=== PATIENT | female | born 1950 | race Caucasian/White ===

== ENCOUNTER 2021-01-19 08:15 | Outpatient (REF) | payer MEDICARE, MEDICAID, SELFPAY ==
--- NOTE | ~2021-01-19 | XR_ITS ---
EXAMINATION: XR KNEES, STANDING AP XR KNEE, LEFT CLINICAL INFORMATION: Knee pain. COMPARISON: Standing AP knees and left knee radiographs 03/14/2014. TECHNIQUE: Standing AP view of both knees is performed along with lateral and axial patella views of the left knee. FINDINGS: Left Knee: Prior left knee arthroplasty. Hardware intact. No fracture, dislocation, osteolysis, or destructive process. No periostitis. There may be trace suprapatellar fluid. There is ossification in the mid quadriceps tendon again seen. The patella again shows mild lateral tilting without lateralization. Small stable lateral patellar spur. Right Knee: There are osteoarthritic changes, greater medial compartment with prominent joint narrowing and subchondral sclerosis and osteophyte. There is secondary genu varus. No visible erosive change or chondrocalcinosis. No destructive process. XR/XR knee standing BI IMPRESSION: LEFT KNEE: -Knee arthroplasty. Hardware intact. No osteolysis. -Chronic ossification quadriceps tendon and lateral patellar tilting. Trace effusion. 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
--- NOTE | ~2021-01-19 | XR_ITS ---
EXAMINATION: XR KNEES, STANDING AP XR KNEE, LEFT CLINICAL INFORMATION: Knee pain. COMPARISON: Standing AP knees and left knee radiographs 03/14/2014. TECHNIQUE: Standing AP view of both knees is performed along with lateral and axial patella views of the left knee. FINDINGS: Left Knee: Prior left knee arthroplasty. Hardware intact. No fracture, dislocation, osteolysis, or destructive process. No periostitis. There may be trace suprapatellar fluid. There is ossification in the mid quadriceps tendon again seen. The patella again shows mild lateral tilting without lateralization. Small stable lateral patellar spur. Right Knee: There are osteoarthritic changes, greater medial compartment with prominent joint narrowing and subchondral sclerosis and osteophyte. There is secondary genu varus. No visible erosive change or chondrocalcinosis. No destructive process. XR/XR knee LT 2V IMPRESSION: LEFT KNEE: -Knee arthroplasty. Hardware intact. No osteolysis. -Chronic ossification quadriceps tendon and lateral patellar tilting. Trace effusion. 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
== END 2021-01-19 08:16 | disposition home or self-care (01) ==
LOC: HO.HOSX 08:15
PROVIDERS: Visit Provider Orthopaedic Surgery
DX: T84.84XA Pain due to internal orthopedic prosthetic devices, implants and grafts, initial encounter (principal); Z96.652 Presence of left artificial knee joint
CPT/HCPCS: 73560; 73565; 99202

== ENCOUNTER 2024-06-14 12:04 | Outpatient (REF) | payer MEDICARE, SELFPAY ==
--- NOTE | ~2024-06-14 | XR_ITS ---
EXAMINATION: XR RIGHT KNEE 1 VIEW CLINICAL INFORMATION: Pain in unspecified knee M25.569. COMPARISON: XR Bilateral knees anteroposterior standing. TECHNIQUE: One view of the right knee. FINDINGS: Prosthetic components of the total knee arthroplasty are appropriately aligned without periprosthetic fracture or abnormal lucency. No component migration. No joint effusion. There is severe medial compartment joint space narrowing with osteophyte formation and subchondral sclerosis. XR/XR knee RT 1V IMPRESSION: 1. Appropriate alignment of the left total knee arthroplasty without evidence of complications. 2. Severe degenerative disease of the right medial compartment. Electronically signed by: Diana Guevara MD 08/15/2024 06:39 PM EST RP
== END 2024-06-14 12:05 | disposition home or self-care (01) ==
LOC: HO.HOSX 12:04
PROVIDERS: Visit Provider Orthopaedic Surgery
DX: M25.562 Pain in left knee (principal); Z96.652 Presence of left artificial knee joint
CPT/HCPCS: 73560; 73562; 99202

== ENCOUNTER 2024-06-14 13:33 | Outpatient (AMB) | payer MEDICARE, SELFPAY ==
--- NOTE | 2024-06-14 13:44 | A.OFFVIS_ITS ---
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 Hx of Left TKA in 2012. She has diminutive quadriceps tendon after an abscess at the proximal aspect of the incision and subsequent fasc iocutaneous adhesions that required that manipulation and surgical lysis of adhesions When she was seen last in 2020 there was not orthopedic interventions that were warranted. 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 Hx of Left TKA in 2012. She has diminutive quadriceps ten don after an abscess at the proximal aspect of the incision and subsequent fasciocutaneous adhesions that required that manipulation and surgical lysis of adhesions When she was seen last in 2020 there was not orthopedic interventions that were warranted. She actually has been doing well and losing weight but she did have the development of a small blister like growth over the proximal aspect of the incision that has since resolved. She denies fevers and chills. She denies pain. She states she has been doing pretty well. She can even go up and down stairs 1 leg at a time. [facility] Social History (Updated 01/19/21 @ 13:33 by MIGUEL Lund) Alcohol intake: never Current occupational status: retired Physical Exam Extrem Other: 0-100 degrees of motion There is a very small blood blister at the proximal aspect of the incision that is nontender. There is no effusion. There is no erythema. Incision is closed. She is walking comfortably. Results Reviewed Results Reviewed: I personally reviewed relevant radiographs. Left total knee arthroplasty in expected post operative position with no hardware complications or evidence of loosening Assessment & Plan Assessment & Plan (1) Status post left knee replacement: Code(s): Z96.652 - Presence of left artificial knee joint Category: Surgical Plan: Versus status post left knee replacement. He is doing well. There is no evidence of infection or complications. There was no evidence of loosening. I am not sure what the little ?blister? that she had was that if it reoccurs she will return to see me. Orders: Orders XR knee LT 3V Today M25.562 - Pain in left knee Coding Level of Care Code New Pt Level 3 (30759) Diagnoses Status post left knee replacement Z96.652
== END 2024-06-14 14:24 | disposition home or self-care (01) ==
PROVIDERS: Visit Provider Orthopaedic Surgery
DX: M25.562 Pain in left knee (principal); Z96.652 Presence of left artificial knee joint
CPT/HCPCS: 99202

== ENCOUNTER 2024-06-21 13:22 | Outpatient (AMB) | payer MEDICARE, SELFPAY ==
--- NOTE | 2024-06-21 13:27 | MHC.OFFVIS ---
Intake Visit Reasons: OV-LT knee replacement ' knee pain Intake Note: Carmela is a 74 year old female who presents today as a new patient with complaints of left knee pain. Hx of Left TKA in 2012. She has diminutive quadriceps tendon after an abscess at the proximal aspect of the incision and subsequent fasciocutaneous adhesions that required that manipulation and surgical lysis of adhesions When she was seen last in 2020 there was not orthopedic interventions that were warranted. Patient reports that the abcess has returned and bursted. Allergies codeine [CODEINE] Allergy (Severe, Unverified 06/14/24 13:45) TACHYCARDIA- ANXIOUS oxycodone [From PERCOCET] Allergy (Severe, Unverified 06/14/24 13:45) TACHYCARDIA, ANXIOUS Penicillins [PENICILLINS] Allergy (Intermediate, Unverified 06/14/24 13:45) RASH acetaminophen [Percocet] Allergy (Unknown, Verified 06/14/24 13:45) unk penicillin V Allergy (Unknown, Verified 06/14/24 13:45) unk Hydrocodone-Acetaminophen Allergy (Unknown, Uncoded 06/14/24 13:45) unk HPI HPI OV-LT knee replacement ' knee pain: Details: Carmela is a 74 year old female who presents today as a new patient with complaints of left knee pain. Hx of Left TKA in 2012. She has diminutive quadriceps tendon after an abscess at the proximal aspect of the incision and subsequent fasciocutaneous adhesions that required that manipulation and surgical lysis of adhesions When she was seen last in 2020 there was not orthopedic interventions that were warranted. Patient reports that the abcess has returned and bursted. She recently had an improvement in her range of motion and is bending her knee to almost 110 degrees. She denies fevers and chills. [facility] Social History Alcohol intake: never Current occupational status: retired Physical Exam Extrem Other: There is a small chronic appearing superficial wound over the incision just superior to the patella. No underlying redness erythema drainage or evidence of infection. There is evidence of wound prior wound healing here Assessment & Plan Assessment & Plan (1) Status post left knee replacement: Code(s): Z96.652 - Presence of left artificial knee joint Category: Surgical Plan: Left knee his in stable condition. No evidence of infection. Range of motion has improved a bit recently which is unusual given how far out from surgery she is and this may have resulted in some changes again motion at the area of prior open wound healing. I think she would benefit from a split-thickness skin graft for at least consultation with a plastic surgeon. I suspect that this will continue to happen and it has been recurring now for several months. It is a small wound and it is superficial and there is no evidence of deep involvement (2) Chronic wound: Code(s): T14.8XXA - Other injury of unspecified body region, initial encounter Category: Medical Plan: I would like to refer her to a plastic surgeon for consideration of a split-thickness skin graft. Coding Level of Care Code Est Pt Level 4 (20224) Diagnoses Status post left knee replacement Z96.652 Chronic wound T14.8XXA
== END 2024-06-21 14:00 | disposition home or self-care (01) ==
PROVIDERS: Visit Provider Orthopaedic Surgery
DX: M25.562 Pain in left knee (principal); Z96.652 Presence of left artificial knee joint; T81.89XA Other complications of procedures, not elsewhere classified, initial encounter
CPT/HCPCS: 99214

== ENCOUNTER → 2024-06-21 13:22 | Outpatient (BNVA) | payer MEDICARE, SELFPAY | PROVIDERS: Visit Provider Orthopaedic Surgery | DX: M25.562 Pain in left knee (principal); S81.002A Unspecified open wound, left knee, initial encounter; X58.XXXA Exposure to other specified factors, initial encounter; Y93.9 Activity, unspecified; Y92.9 Unspecified place or not applicable; Y99.9 Unspecified external cause status; Z96.652 Presence of left artificial knee joint | CPT/HCPCS: 99212 ==